=== PATIENT | male | born 1935 | race Caucasian/White ===

== ENCOUNTER → 2016-12-20 | Outpatient (CLI) | payer MEDICARE, BC ==
[~2016-12-20] MED LIST: ACET1TAB12 PO; ASCO500T9 PO; ASPI-1085 PO; CEPH-583 PO; FLEC50TA2 PO; LEVO150T11 PO; MULT-1198 PO; PRAV40TA3 PO; TAMS0.4C47 PO
== END ==
LOC: NEU 09:50
PROVIDERS: ATTEND Internal Medicine
DX: G56.03 Carpal tunnel syndrome, bilateral upper limbs (principal); G58.0 Intercostal neuropathy; G56.21 Lesion of ulnar nerve, right upper limb
CPT/HCPCS: 95886; 95911